=== PATIENT | female | born 1990 | race Caucasian/White ===

== ENCOUNTER 2016-07-31 19:37 | Emergency (ER) | payer BC, MEDICAID, OTHER ==
[~2016-07-31] VITALS: Ht 157.5 cm; Wt 53.0 kg
[~2016-07-31 19:37] MED LIST: MACR100C PO; PREN0.01 PO
[2016-07-31 20:26] VITALS: BP 118/75; PULSE 66; RESP 18; TEMP 98.8; O2SAT 99
--- NOTE | 2016-07-31 21:13 | PD ---
HPI Chief Complaint: Injury Time Seen by Provider: 21:11 Travel History International Travel<30 days: No Contact w/Intl Traveler<30days: No Traveled to known affect area: No History of Present Illness HPI Patient comes in for evaluation of left thumb pain that began earlier today while at work. Patient states he accidentally injured her left thumb closing it in the safe while at work today. Patient states she applied ice this prior to coming emergency department. Denies doing anything else. Patient having throbbing pain distal phalanx of her left thumb. Pain is worse with palpation. Denies any numbness or tingling. PFSH Past Medical History Medical History: Denies Significant Hx Diminished Hearing: No Influenza Vaccination: No ?: Not LMP: TWO WEEKS AGO : 1 Para: 1 Social History Alcohol Use: No Tobacco Use: No Substance Use: No Allergies-Medications (Allergen,Severity, Reaction): Coded Allergies: No Known Allergies (Verified , 07/31/16) Reported Meds & Prescriptions Reported Meds & Active Scripts Active Reported Vit ( Plus) (Prenat Multivit/[place]/Iron/Folic Ac) Tab 1 Tab PO DAILY Review of Systems Except as stated in HPI: all other systems reviewed are Neg Physical Exam Narrative GENERAL: Well-developed, well nourished, in no acute distress, and non-ill appearing. SKIN: Focused skin assessment warm and dry. Small subungual hematoma noted her left thumbnail that is covering less than 50% of the nail. HEAD: Atraumatic. Normocephalic. EYES: Pupils equal and round. EOMI. No scleral icterus. No injection or drainage. ENT: No nasal bleeding or discharge. Mucous membranes pink and moist. NECK: Trachea midline. Supple. No nuclear rigidity. CARDIOVASCULAR: Radial pulses 2+, intact, equal bilaterally. Capillary refill less than 2 seconds. RESPIRATORY: No accessory muscle use. No respiratory distress. MUSCULOSKELETAL: No obvious deformities. No clubbing. No cyanosis. No edema. Full range of motion. Patient reports a palpation distal phalanx left thumb. Full range of motion with flexion, extension, and opposition. NEUROLOGICAL: Awake and alert. No obvious cranial nerve deficits. Motor grossly within normal limits. Normal speech. PSYCHIATRIC: Appropriate mood and affect; insight and judgment normal. Data Data Last Documented VS Vital Signs Date Time Temp Pulse Resp B/P Pulse Ox O2 Delivery O2 Flow Rate FiO2 4/1/17 20:26 98.8 66 18 118/75 99 Orders Finger ([id number]) (07/31/16 ) Ice/Cold Pack (07/31/16 21:00) MDM Medical Decision Making Medical Screen Exam Complete: Yes Emergency Medical Condition: Yes Differential Diagnosis Fracture, contusion, sprain, other Narrative Course Patient was offered drainage of the small subungual hematoma, patient is declined at this time. Patient was informed that she will most likely loose her fingernail. The patient appears to have suffered a contusion of the thumb. There is no clinical evidence to suspect bony injury by exam. Radiographic examination revealed no fracture seen at this time. The patient has full range of motion on active and passive motions. There is no significant edema. There is no proximal or distal joint effusion. The distal extremity appears neurovascularly intact, without evidence of neurovascular injury nor compartment syndrome. Tendon exam also was intact. The patient was discharged and given warnings for vascular compromise. The patient is to follow up with their Workmen's Comp. provider. The patient agrees with plan. Patient in no obvious distress upon re-evaluation. All pertinent Radiology result(s) discussed with patient. Any questions/concerns in reference to patient diagnosis/condition discussed and clarified prior to patient's discharge. Reinforced sheer importance of close follow up with patient's primary physician or primary care clinic. Instructed patient to return to ED immediately, if symptoms return/worsen. Pt showed understanding of above instructions. Further instructions and recommendations were detailed in discharge paperwork. Pt ambulated without difficulty out of ED at discharge. Diagnosis Primary Impression: Contusion of left thumb nail Qualified Code: S60.112A - Contusion of left thumb nail, initial encounter Additional Impression: Subungual hematoma of finger of left hand Qualified Code: S60.10XA - Subungual hematoma of finger of left hand, initial encounter Patient Instructions: Contusion in Adults (ED), General Instructions, Subungual Hematoma (ED) Additional Instructions: Follow-up with your workmen's comp provider in 2-3 days for reevaluation. Elevated affect hand to decrease pain. Apply ice to affected area 20 minutes per hour as needed for pain. Use [id number] Tylenol and/or ibuprofen as needed for pain. Follow instructions on the packaging. Return to the emergency department if symptoms get worse. Disposition: 01 DISCHARGE HOME Condition: Stable Sarah,Jake D PA Jul 31, 2016 21:13
--- NOTE | 2016-07-31 21:22 | RADHPO ---
EXAM DATE/TIME: 07/31/2016 21:03 [facility] COMPARISON: No previous studies available for comparison. INDICATIONS : Left hand first digit pain. Patient states she shut her thumb in a safe door. MEDICAL HISTORY : None. SURGICAL HISTORY : None. ENCOUNTER: Initial ACUITY: 1 day PAIN SCORE: 8/10 LOCATION: Left hand, first digit. FINDINGS: Examination of the first digit of the left hand demonstrates no evidence of fracture or dislocation. No radiopaque foreign bodies are seen. The soft tissues are intact. CONCLUSION: Negative exam. Min Sanchez MD on July 31, 2016 at 21:20 Board Certified Radiologist. This report was verified electronically.
== END 2016-07-31 21:59 | disposition home or self-care (01) ==
LOC: PHEFT 19:37
DX: S60.112A Contusion of left thumb with damage to nail, initial encounter (principal); W23.0XXA Caught, crushed, jammed, or pinched between moving objects, initial encounter; Y99.0 Civilian activity done for income or pay
CPT/HCPCS: 73140; 99283